=== PATIENT | male | born 1990 | race Caucasian/White ===

== ENCOUNTER 2020-07-14 00:04 | Emergency (ER) | payer SELFPAY ==
[~2020-07-14] VITALS: Ht 190.5 cm; Wt 93.4 kg
[2020-07-14 01:12] VITALS: BP 124/70
== END 2020-07-14 01:10 | disposition home or self-care (01) ==
LOC: ER 00:05
DX: R07.89 Other chest pain (principal)
CPT/HCPCS: 36415; 84484; 93005; 99283; 99284